=== PATIENT | male | born 1955 | race Two or more races ===

== ENCOUNTER 2016-06-30 06:01 | Day surgery (SDC) | payer OTHER ==
--- NOTE | 2016-06-29 13:17 | PREOPHP ---
DATE OF ADMISSION: 06/30/2016 HISTORY OF PRESENT ILLNESS: This 61-year-old patient is admitted for elective cataract extraction o f the left eye. The patient has previously had decreased vision in both eyes and underwent cataract surgery in the right eye in 2014 with good visual result. The patient also has a 30-year history o f ton-oqphjsv-fdspryllj diabetes mellitus and is currently taking metformin and glipizide. ALLERGIES: THERE ARE NO KNOWN ALLERGIES. PHYSICAL EXAMINATION: Visual acuity with best correction is 20/25 in the right eye and 20/50 in the left eye. Slit lamp examination reveals a posterior chamber intraocular lens in appropriate positi on in the right eye and an anterior cortical nuclear sclerotic and posterior subcapsular cataract in the left eye. Applanation tonometry is 15 mmHg. Examination of the retina is within normal limits . DIAGNOSIS: Cataract, left eye. PLAN: Cataract extraction with lens implant, left eye. The risks and alternatives to the surgery h ave been discussed with the patient, and the patient has opted to proceed with surgery in hopes of i mproving visual functioning which will lead to a greater ability to perform activities of daily bismark ng. Dictated By: DEVYN CASH/TOBY Conf#: [id number] DID#: [id number]
[~2016-06-30] VITALS: Ht 180.3 cm; Wt 91.0 kg
[2016-06-30] VITALS (10 sets, daily range): BP systolic 113–182; BP diastolic 69–82; PULSE 72–79; RESP 13–19; Ht 180.3 cm; Wt 91.0 kg
[~2016-06-30 06:01] MED LIST: GLIP10TA95 PO; METFORMIN
[2016-06-30] MEDS ORDERED: PROPOFOL 200 MG INJ ONE (07:00)
[2016-06-30] MEDS ORDERED: LIDOCAINE 2% (SDV) 5 ML INJ ONE (07:00)
[2016-06-30] MEDS ORDERED: METF-382 PO (07:24)
[2016-06-30] MEDS ORDERED: DICLOFENAC 0.1% 2.5 ML OPH OPER SCH (07:30)
[2016-06-30] MEDS ORDERED: CIPROFLOXACIN 0.3% 2.5 ML OPH OPER SCH (07:30)
[2016-06-30] MEDS ORDERED: TROPICAMIDE 1% 2 ML OPH OPER SCH (07:30)
[2016-06-30] MEDS ORDERED: CYCLOPENTOLATE/PHENYLEPH 2 ML OPH OPER SCH (07:30)
[2016-06-30] MEDS ORDERED: EPINEPHrine 1 MG INJ ONE (08:08)
[2016-06-30] MEDS ORDERED: LIDOCAINE 4% (MPF) 5 ML INJ ONE (08:08)
[2016-06-30] MEDS ORDERED: CARBACHOL 0.01% 1.5 ML OPH INJ ONE (08:08)
[2016-06-30] MEDS ORDERED: GENTAMICIN 80 MG INJ ONE (08:08)
[2016-06-30] MEDS ORDERED: CEFAZOLIN 1 GM INJ ONE (08:08)
[2016-06-30] MEDS ORDERED: DEXAMETHASONE 4 MG/ML 1 ML INJ ONE (08:08)
[2016-06-30] MEDS ORDERED: HYALURONATE/CHONDROITIN 1ML OPH INJ ONE (08:09)
[2016-06-30] MEDS ORDERED: DEXAMETHASONE 4 MG/ML 1 ML INJ INJ ONE (08:20)
[2016-06-30] MEDS ORDERED: HYALURONATE/CHONDROITIN 1ML OPH INJ IO ONE (08:20)
[2016-06-30] MEDS ORDERED: CEFAZOLIN 1 GM INJ INJ ONE (08:20)
[2016-06-30] MEDS ORDERED: CARBACHOL 0.01% 1.5 ML OPH INJ IO ONE (08:20)
[2016-06-30] MEDS ORDERED: GLUCOSE GEL 15 GRAM TUBE PO PRN ×2 (08:30)
[2016-06-30] MEDS ORDERED: INSULIN ASPART [NOVOLOG] 3 ML PEN SC ONE (08:30)
[2016-06-30] MEDS ORDERED: OXYCODONE/ACETAMINOPHEN (5/325) TAB PO PRN (08:30)
[2016-06-30] MEDS ORDERED: FENTAnyl 50 MCG/ML VIAL IV PRN ×3 (08:30)
[2016-06-30] MEDS ORDERED: GLUCAGON 1 MG INJ IM PRN (08:30)
[2016-06-30] MEDS ORDERED: ONDANSETRON 4 MG INJ IV PRN (08:30)
[2016-06-30] MEDS ORDERED: EPHEDrine SULFATE 50 MG/5 ML SYG IV PRN (08:30)
[2016-06-30] MEDS ORDERED: DEXTROSE 50% 50 ML SYRINGE IV PRN ×2 (08:30)
[2016-06-30] MEDS ORDERED: LABETALOL HCL 20MG INJ IV PRN (08:30)
[2016-06-30] MEDS ORDERED: GLUCOSE GEL 15 GRAM TUBE BUCCAL PRN (08:30)
[2016-06-30] MEDS ORDERED: hydrALAzine 20 MG INJ IV PRN (08:30)
--- NOTE | 2016-06-30 09:28 | OPR ---
DATE OF OPERATION: 06/30/2016 PREOPERATIVE DIAGNOSIS: Cataract, left eye. POSTOPERATIVE DIAGNOSIS: Cataract, left eye. SURGEON: Devyn Salguero MD CLIPPER AND TURNER: ANESTHESIA: Local standby. ANESTHESIOLOGIST: Dr. Hall OPERATION: Cataract extraction with lens implant, left eye. PROCEDURE: The patient was brought to the operating room and placed on the table with an IV in plac e and the patient attached to an residential monitor. Oxygen was given via face mask. After some intravenous sedation was administered, local anesthesia was given using Xylocaine 2% with epinephrine, mixed with Marcaine 0.5%. This was given in a lid block and retrobulbar injection. The patient was then prepped and draped in the usual sterile manner. A wire lid speculum was inserted between the lids of the left eye. A SuperBlade was used to enter th e anterior chamber at the corneoscleral limbus at the 10:30 o'clock position. A separate incision wa s made using a 3.0-mm keratome which entered the corneoscleral junction at the 12 o'clock position. Through this 3-mm opening, an irrigating cystotome was introduced into the anterior chamber. The omaira mber was filled with Viscoat and an anterior capsulotomy was performed. Balanced salt solution was t hen used for hydrodissection of the lens. A phacoemulsification handpiece was then brought into the field and introduced into the anterior chamber. The lens nucleus was emulsified using a deep groove and cracking the nucleus into quadrants. Following this, each quadrant was aspirated and emulsified at the pupillary margin. After this was completed, the irrigation/aspiration handpiece was brought to the field, introduced i nto the posterior chamber, and the lens cortical material was removed. When this was completed, idalmis tional Viscoat was injected into the anterior and posterior chambers. The 3-mm opening had its internal lips enlarged, and then the posterior chamber intraocular lens roxi suring 22.0 diopters ([employer] model LI61AO) was then injected into the posterior chamber using the lens injector system. After the leading haptic was introduced into the capsular b ag and the lens optic was present in the center of the eye, the injector was removed and the trailin g haptic was grasped with non-toothed forceps and introduced into the capsular fold superiorly. A Si nskey hook was then used to rotate the intraocular lens so that the lips were oriented in the horizo ntal meridian. One 10-0 nylon suture was placed across the wound. Prior to tying, the irrigation/aspiration handpiece was reintroduced into the anterior chamber to re move the Viscoat. Miochol was instilled to constrict the pupil, and then the 10-0 nylon suture was t ied. The ends were cut short and then the knot was buried. Then, 0.5 mL of dexamethasone and 0.5 mL of Ancef were injected into the sub-Tenon space in the infe rior fornix. Ciloxan drops were then placed on the surface of the eye. The speculum was removed and a patch was applied. The patient then left the operating room in satisfactory condition. Dictated By: DEVYN CASH/TOBY Conf#: [id number] DID#: [id number]
== END 2016-06-30 10:30 | disposition home or self-care (01) ==
LOC: SDS 06:01
PROVIDERS: ATTEND Ophthalmology
DX: H25.12 Age-related nuclear cataract, left eye (principal); E11.9 Type 2 diabetes mellitus without complications; E66.9 Obesity, unspecified; Z68.28 Body mass index [BMI] 28.0-28.9, adult
CPT/HCPCS: 66984; 82962; J0171; J0690; J1100; J1580; J1815; V2632; Z7512; Z7610